=== PATIENT | male | born 1985 | race Hispanic/Latino ===

== ENCOUNTER 2018-04-27 18:21 | Emergency (ER) | payer BC ==
[2018-04-27] MEDS ORDERED: Sodium Chloride 0.9% 1,000 ML IV STA ×2 (20:24→21:57)
--- NOTE | 2018-04-27 20:30 | ED PDOC ---
HPI: Abdomen Time Seen by Provider: 04/27/18 20:16 Chief Complaint (Nursing): Back Pain Chief Complaint (Provider): abdominal pain History Per: Patient History/Exam Limitations: no limitations Onset/Duration Of Symptoms: Days (2), Waxing/Waning Current Symptoms Are (Timing): Still Present Location Of Pain/Discomfort: Other (bilateral flank) Quality Of Discomfort: Cramping, "Pain" Associated Symptoms: Nausea, Vomiting Last Bowel Movement: Today Additional Complaint(s): 32 y/o male presents for evaluation of abdominal pain x 8 hours. Associated nausea, vomiting, chills x 2 days. Denies headache, dizziness, chest pain, shortness of breath, palpitations, changes in bowel movements, urinary symptoms, recent travel sick contacts. No medications taken for relief thus far Past Medical History Reviewed: Historical Data, Nursing Documentation, Vital Signs Vital Signs: Last Vital Signs Temp 98.4 F 04/27/18 19:08 Pulse 79 04/27/18 19:08 Resp 16 04/27/18 19:08 BP 121/71 04/27/18 19:08 Pulse Ox 95 04/27/18 19:08 - Medical History PMH: No Chronic Diseases - Surgical History Surgical History: No Surg Hx - Family History Family History: States: No Known Family Hx - Home Medications Home Medications: Ambulatory Orders Medication Instructions Recorded Ondansetron ODT [Zofran ODT] 4 mg PO Q8 PRN #10 odt 04/28/18 - Allergies Allergies/Adverse Reactions: Allergies Allergy/AdvReac Type Severity Reaction Status Date / Time No Known Allergies Allergy Verified 04/27/18 19:07 Review of Systems ROS Statement: Except As Marked, All Systems Reviewed And Found Negative Gastrointestinal: Positive for: Nausea, Vomiting, Abdominal Pain Physical Exam - Reviewed Nursing Documentation Reviewed: Yes Vital Signs Reviewed: Yes - Physical Exam Appears: Positive for: Well, Non-toxic, No Acute Distress Head Exam: Positive for: ATRAUMATIC, NORMAL INSPECTION, NORMOCEPHALIC Skin: Positive for: Normal Color Eye Exam: Positive for: Normal appearance ENT: Positive for: Normal ENT Inspection Cardiovascular/Chest: Positive for: Regular Rate, Rhythm Respiratory: Positive for: Normal Breath Sounds Gastrointestinal/Abdominal: Positive for: Bowel Sounds, Soft, Tenderness (mild bilateral flank tenderness) Back: Positive for: Normal Inspection. Negative for: L CVA Tenderness, R CVA Tenderness Extremity: Positive for: Normal ROM Neurologic/Psych: Positive for: Alert, Oriented (x3) - Laboratory Results Result Diagrams: 04/27/18 21:10 04/27/18 21:10 - ECG O2 Sat by Pulse Oximetry: 95 - Progress ED Course And Treament: -udip -cbc -cmp -lipase -urinalysis -urine c&s -IV NS bolus -IV zofran -IV toradol EXAM: CT Abdomen without IV contrast CLINICAL HISTORY: Bilateral flank pain abd/ back pain kidney infection TECHNIQUE: Axial computed tomography images of the abdomen and pelvis without intravenous contrast. 534.02 mGy-cm CONTRAST: Without COMPARISON: None provided. FINDINGS: LUNG BASES: Mild atelectasis or scarring in the lung bases. 4 mm nodule in the right lower lobe subpleural a on series 2, image 6. Per the Fleischner 2017 guidelines, This does not require followup a mass the patient is considered high-risk. LIVER: Unremarkable. GALLBLADDER AND BILE DUCTS: The gallbladder is decompressed. PANCREAS: Unremarkable. SPLEEN: Unremarkable. ADRENAL GLANDS: Unremarkable. KIDNEYS, URETERS, AND BLADDER: There is no hydronephrosis bilaterally. STOMACH AND BOWEL: Questionable tiny hiatal hernia. There are some top normal caliber fluid-filled small bowel loops. This is nonspecific but could be seen in enteritis. There is a slight caliber change with the more distal loops appearing slightly smaller than the more proximal small bowel loops. While nonspecific, the possibility of early evolving partial small bowel obstruction is not entirely excluded. Please correlate clinically and if indicated this could be evaluated by short-term followup. APPENDIX: No evidence of acute appendicitis on CT examination. PERITONEUM: No pneumoperitoneum. No ascites. LYMPH NODES: There are some top normal mesenteric and retroperitoneal lymph nodes, without catrina lymphadenopathy. This is nonspecific but can be seen in mesenteric adenitis, please correlate clinically. VASCULATURE: No evidence of abdominal aortic aneurysm. BONES: No aggressive appearing osseous lesion. No acute osseous pathology evident. MISCELLANEOUS: There is a punctate nonobstructing calculus at the right mid pole. There is mild prominence of both proximal ureters but these taper distally and there are no obstructing calculi seen. IMPRESSION: 1. Mild atelectasis or scarring in the lung bases. 2. 4 mm nodule in the right lower lobe subpleural a on series 2, image 6. Per the Fleischner 2017 guidelines, This does not require followup a mass the patient is considered high-risk. 4. There is a punctate nonobstructing calculus at the right mid pole. There is no hydronephrosis bilaterally. There is mild prominence of both proximal ureters but these taper distally and there are no obstructing calculi seen. 5. There are some top normal caliber fluid-filled small bowel loops. This is nonspecific but could be seen in enteritis. There is a slight caliber change with the more distal loops appearing slightly smaller than the more proximal small bowel loops. While nonspecific, the possibility of early evolving partial small bowel obstruction is not entirely excluded. Please correlate clinically and if indicated this could be evaluated by short-term followup. 6. There are some top normal mesenteric and retroperitoneal lymph nodes, without catrina lymphadenopathy. This is nonspecific but can be seen in mesenteric adenit is, please correlate clinically Patient evaluated by Dr. Choudhury, surgical instrument technician on-call, who feels low suspicious for SBO, more likely gastroenteritis; no emergent surgical intervention at this time. Return precautions given Patient tolerating PO on re-eval, states he is feeling better Patient educated on findings, discharged with rx Zofran Advised increase fluid intake, bland diet Follow up PMD within 2-3 days Return precautions given Disposition - Clinical Impression Clinical Impression: Gastroenteritis - Patient ED Disposition Is Patient to be Admitted: No Counseled Patient/Family Regarding: Studies Performed, Diagnosis, Need For Foll owup, Rx Given - Disposition Referrals: [facility] [Outside] Disposition: Routine/Home Disposition Time: 02:03 Condition: IMPROVED Prescriptions: Ondansetron ODT [Zofran ODT] 4 mg PO Q8 PRN #10 odt PRN Reason: Nausea/Vomiting Instructions: Gastroenteritis (ED) Forms: [employer] ([place])
[2018-04-27 21:17] LABS: BASO % 0.3 % (0.0-2.0); EOS % 0.1 % (0.0-4.0); HEMOGLOBIN 14.3 g/dL (12.0-18.0); LYMPH # 0.7 K/uL (1.0-4.3); LYMPH % 9.2 % (20.0-40.0); MEAN CELL VOLUME 93.8 fl (80.0-94.0); MEAN CORPUSCULAR HEMOGLOBIN 31.8 pg (27.0-31.0); MEAN CORPUSCULAR HGB CONC 33.9 g/dL (33.0-37.0); MEAN PLATELET VOLUME 8.3 fl (7.2-11.7); MONO # 0.8 K/uL (0.0-0.8); MONO % 10.2 % (0.0-10.0); NEUT # 6.1 K/uL (1.8-7.0); NEUT % 80.2 % (50.0-75.0); PLATELET COUNT 223 K/uL (130-400); RBC 4.49 Mil/uL (4.40-5.90); WHITE BLOOD COUNT 7.6 K/uL (4.8-10.8)
[2018-04-27 21:24] LABS: ALB/GLOB RATIO 1.3 (1.0-2.1); ALBUMIN 4.5 g/dL (3.5-5.0); ALT/SGPT 63 U/L (21-72); AST/SGOT 36 U/L (17-59); BLOOD UREA NITROGEN 14 mg/dl (9-20); CALCIUM 9.5 mg/dL (8.4-10.2); GFR NON-AFRICAN AMERICAN > 60; LIPASE 47 U/L (23-300)
[2018-04-27 21:30] LABS: URINE BACTERIA RARE (<OCC); URINE BILIRUBIN NEGATIVE (NEGATIVE); URINE BLOOD NEGATIVE (NEGATIVE); URINE CLARITY SLIGHTY-CLOUDY (Clear); URINE COLOR YELLOW (YELLOW); URINE GLUCOSE (UA) NEG (NEGATIVE); URINE LEUKOCYTE ESTERASE NEG Leu/uL (Negative); URINE PROTEIN 100 mg/dL (NEGATIVE); URINE UROBILINOGEN 0.2-1.0 mg/dL (0.2-1.0)
[2018-04-27 22:16] LABS: BANDS 2 % (0-2); BASOPHIL 1 % (0-2); LYMPHOCYTE 9 % (20-50); MONOCYTE 11 % (0-10); NEUTROPHIL 77 % (42-75); PLATELET ESTIMATE NORMAL (NORMAL); TOTAL CELLS COUNTED 100
[2018-04-28 00:03] VITALS: O2SAT 95
--- NOTE | 2018-04-28 01:17 | CP.PCM.CON ---
History of Present Illness - History of Present Illness History of Present Illness: Surgery consult note for Dr. Carlos Pt is a 32M who denies significant PMH or PSH who presented to the ED with nausea and vomiting non-bloody emesis and BL flank pain for 1 day's duration. Patient states that pain, nausea and vomiting started 30min after eating some hot dogs. Emesis was originally food contents then turned bilious. Pain began in bilateral flanks and then radiated to the diffuse abdomen. Reports diarrhea and passing gas. Last BM was approximately 6 hours ago, right before presented to the ER--denies any melena or hematochezia. Pain, nausea, and vomiting improved with IV toradol. Denies any fevers, chills, dysuria, hematuria, chest pain, SOB. Has never had any prior episodes and denies any sick contacts PMH: denies PSH: denies ALL: nkda Social: smokes 8 cigarettes a day, social ETOH, denies any drugs Review of Systems - Review of Systems All systems: reviewed and no additional remarkable complaints except (as per HPI) Past Patient History - Past Medical History & Family History Past Medical History?: Yes Past Family History: Reviewed and not pertinent - Past Social History Smoking Status: Light Smoker < 10 Cigarettes Daily Alcohol: Social Drugs: Denies - PSYCHIATRIC Hx Substance Use: No - SURGICAL HISTORY Hx Surgeries: No - ANESTHESIA Hx Anesthesia: No Meds Allergies/Adverse Reactions: Allergies Allergy/AdvReac Type Severity Reaction Status Date / Time No Known Allergies Allergy Verified 04/27/18 19:07 Physical Exam - Constitutional Appears: Well, Non-toxic, No Acute Distress - Head Exam Head Exam: ATRAUMATIC, NORMOCEPHALIC - Eye Exam Eye Exam: Normal appearance. absent: Conjunctival injection, Scleral icterus - ENT Exam ENT Exam: Mucous Membranes Moist, Normal Oropharynx - Respiratory Exam Respiratory Exam: NORMAL BREATHING PATTERN. absent: Accessory Muscle Use, Respiratory Distress - Cardiovascular Exam Cardiovascular Exam: RRR - GI/Abdominal Exam GI & Abdominal Exam: Soft. absent: Distended, Hernia, Rebound, Tenderness - Extremities Exam Extremities exam: Positive for: pedal pulses present. Negative for: calf tenderness, pedal edema - Back Exam Back exam: absent: CVA tenderness (L), CVA tenderness (R) - Neurological Exam Neurological exam: Alert, Oriented x3 - Psychiatric Exam Psychiatric exam: Normal Affect, Normal Mood - Skin Skin Exam: Dry, Normal Color, Warm Results - Vital Signs Recent Vital Signs: Last Vital Signs Temp 98.9 F 04/27/18 22:38 Pulse 91 H 04/27/18 22:38 Resp 20 04/27/18 22:38 BP 115/66 04/27/18 22:38 Pulse Ox 95 04/28/18 00:03 - Labs Result Diagrams: 04/27/18 21:10 04/27/18 21:10 Labs: Laboratory Results - last 24 hr 04/27/18 04/27/18 04/27/18 21:10 21:10 21:10 WBC 7.6 RBC 4.49 Hgb 14.3 Hct 42.1 MCV 93.8 MCH 31.8 H MCHC 33.9 RDW 13.0 Plt Count 223 MPV 8.3 Neut % (Auto) 80.2 H Lymph % (Auto) 9.2 L Richardson % (Auto) 10.2 H Eos % (Auto) 0.1 Baso % (Auto) 0.3 Neut # (Auto) 6.1 Lymph # (Auto) 0.7 L Richardson # (Auto) 0.8 Eos # (Auto) 0.0 Baso # (Auto) 0.0 Neutrophils % (Manual) 77 H Band Neutrophils % 2 Lymphocytes % (Manual) 9 L Monocytes % (Manual) 11 H Basophils % (Manual) 1 Platelet Estimate Normal RBC Morphology Normal Sodium 134 Potassium 3.6 Chloride 97 L Carbon Dioxide 23 Anion Gap 18 BUN 14 Creatinine 0.7 L Est GFR ( Amer) > 60 Est GFR (Non-Af Amer) > 60 Random Glucose 112 H Calcium 9.5 Total Bilirubin 0.8 AST 36 ALT 63 Alkaline Phosphatase 67 Total Protein 7.8 Albumin 4.5 Globulin 3.3 Albumin/Globulin Ratio 1.3 Lipase 47 Urine Color Yellow Urine Clarity Slighty-cloudy Urine pH 8.0 Ur Specific [place] 1.030 Urine Protein 100 Urine Glucose (UA) Neg Urine Ketones 20 Urine Blood Negative Urine Nitrate Negative Urine Bilirubin Negative Urine Urobilinogen 0.2-1.0 Ur Leukocyte Esterase Neg Urine RBC (Auto) 3 Urine Microscopic WBC < 1 Urine Bacteria Rare Influenza Typ A,B (EIA) 04/27/18 21:10 WBC RBC Hgb Hct MCV MCH MCHC RDW Plt Count MPV Neut % (Auto) Lymph % (Auto) Richardson % (Auto) Eos % (Auto) Baso % (Auto) Neut # (Auto) Lymph # (Auto) Richardson # (Auto) Eos # (Auto) Baso # (Auto) Neutrophils % (Manual) Band Neutrophils % Lymphocytes % (Manual) Monocytes % (Manual) Basophils % (Manual) Platelet Estimate RBC Morphology Sodium Potassium Chloride Carbon Dioxide Anion Gap BUN Creatinine Est GFR ( Amer) Est GFR (Non-Af Amer) Random Glucose Calcium Total Bilirubin AST ALT Alkaline Phosphatase Total Protein Albumin Globulin Albumin/Globulin Ratio Lipase Urine Color Urine Clarity Urine pH Ur Specific [place] Urine Protein Urine Glucose (UA) Urine Ketones Urine Blood Urine Nitrate Urine Bilirubin Urine Urobilinogen Ur Leukocyte Esterase Urine RBC (Auto) Urine Microscopic WBC Urine Bacteria Influenza Typ A,B (EIA) Negative for flu a/b - Imaging and Cardiology CT scan - abdomen Status: Image reviewed by me, Report reviewed by me Assessment & Plan - Assessment and Plan (Free Text) Assessment: 32M with abdominal/flank pain, nausea, vomiting, improving--likely gastroenteritis from food or viral, suspicion for SBO low as patient is having bowel function, no signs of a surgical pathology at this time Plan: No indication for any surgical intervention at this time Patient given instructions for warning signs to return to the ER--fever, worsened pain, nasuea and vomiting refractory to conservative management or any other concerning symptoms. Patient and family verbalized understanding and agreement Encourage hydration Discussed with Dr. Carlos, who agreed with above Nichol Choudhury, PGY2
[2018-04-28 02:04] VITALS: BP 121/76; PULSE 75; RESP 16; TEMP 99.4
--- NOTE | 2018-04-28 11:58 | CT ---
Date of service: 04/27/2018 PROCEDURE: CT Abdomen and Pelvis without intravenous contrast HISTORY: bilateral flank pain, vomiting COMPARISON: None. TECHNIQUE: Helical CT of the abdomen and pelvis was performed without oral or intravenous contrast as per referring physician request. Coronal and sagittal reformats were generated.. Contrast dose: None Radiation dose: Total exam DLP = 534.02 mGy-cm. This CT exam was performed using one or more of the following dose reduction techniques: Automated exposure control, adjustment of the mA and/or kV according to patient size, and/or use of iterative reconstruction technique. FINDINGS: LOWER THORAX: Trace left basilar subsegmental atelectasis. Minimal hiatal hernia. LIVER: Unremarkable. No gross lesion or ductal dilatation. GALLBLADDER AND BILE DUCTS: Unremarkable. PANCREAS: Unremarkable. No gross lesion or ductal dilatation. SPLEEN: Unremarkable. ADRENALS: Unremarkable. No mass. KIDNEYS AND URETERS: One or 2 punctate intrarenal calculi are nonobstructive at the midpole right kidney with no radiodense urolithiasis identified at the left. No perinephric reaction or fluid collection appreciated. VASCULATURE: Unremarkable. No aortic aneurysm. No aortic atherosclerotic calcification or mural plaque present. BOWEL: Unremarkable. No obstruction. No gross mural thickening. APPENDIX: Unremarkable. Normal appendix. PERITONEUM: Unremarkable. No free fluid. No free air. LYMPH NODES: Unremarkable. No enlarged lymph nodes. BLADDER: Urinary bladder is distended and thin walled. Trace hyperdense fluid may be layering the dependent portion and hematuria is not excluded. Clinically correlate. This may be artifactual. REPRODUCTIVE: Unremarkable. BONES: No acute fracture. OTHER FINDINGS: None. IMPRESSION: 1. Punctate intrarenal calculi number a total of 2 at the midpole right kidney, nonobstructive. No hydronephrosis bilaterally or hydroureter. No definite radiodense urolithiasis in the urinary bladder. Questionable layering of hyperdense fluid in the dependent urinary bladder. Consider potential limited hematuria. This may be artifactual given its limited density differential. No mural thickening grossly evident throughout the urinary bladder. 2. Examination otherwise unremarkable but limited due to lack of contrast agents.
== END 2018-04-28 02:29 | disposition home or self-care (01) ==
LOC: H.ER 18:21
DX: K52.9 Noninfective gastroenteritis and colitis, unspecified (principal); N20.0 Calculus of kidney; F17.210 Nicotine dependence, cigarettes, uncomplicated
CPT/HCPCS: 74176; 80053; 81003; 83690; 85025; 87086; 87804; 96361; 96374; 96375; 99285; J1885; J2405; J7030